=== PATIENT | female | born 1995 | race Caucasian/White ===

== ENCOUNTER → 2018-07-06 | Day surgery (SDC) | payer OTHER ==
[2018-07-06 16:53] VITALS: BMI 30.4
--- NOTE | 2018-07-06 17:19 | PDOC.LDHP ---
Labor and Delivery H&P Chief complaint: decreased movement HPI: Patient of Dr Haines (not available) CC: Here for decreased FM at 29 weeks Patient being followed by MFM uterine septum, then noted on sono to have unilateral kidney. grouth has been at 8% or so (IUGR). Here for eval of NST. No ctx, no LOF, no VB Review of systems: complete ROS completed and as per HPI Current gestational age (weeks): 29 (5 days) Dating criteria: last menstrual period Grav: 2 Para: 1 OB History Details: Current complications: IUGR (foloowed by MFM), other (unilateral kidney) Abnormal US findings: Yes (as discussed) Current medications: pre- vitamins Previous surgical history: none Allergies/Adverse Reactions: Allergies Allergy/AdvReac Type Severity Reaction Status Date / Time Latex, Natural Rubber Allergy Verified 07/06/18 16:51 Social history: none - Physical Exam Vital signs reviewed and normal: yes (122/77 afebrile 80 18) General: NAD Heart: RRR Lungs: CTAB Abdomen: gravid FHT: category 1 (although EGA 29 weeks, FHTs are "reactive" for age) [place] contractions every: none - Assessment Reactive NST even at 29 week EGA; anomaly; IUGR - Plan Plan: observation in L&D (NST reactive. Follow up with MFM as scheduled. No evidence PTL clinically. ok for outpatient care)
== END | disposition home or self-care (01) ==
LOC: L&D/OP 16:24
PROVIDERS: ATTEND Obstetrics & Gynecology
DX: O36.8130 Decreased fetal movements, third trimester, not applicable or unspecified (principal); O36.5930 Maternal care for other known or suspected poor fetal growth, third trimester, not applicable or unspecified; Z3A.29 29 weeks gestation of pregnancy; Z91.040 Latex allergy status
CPT/HCPCS: 99282

== ENCOUNTER 2018-07-16 17:36 | Observation (INO) | payer OTHER ==
[2018-07-16] MEDS ORDERED: Ondansetron PF 4 MG/2 ML Vial IVP PRN (18:19)
[2018-07-16 18:29] VITALS: BMI 30.8
[2018-07-16 19:28] LABS: Hemoglobin 9.8 g/dL (12.0-16.0); Mean Corpuscular HGB CONC 34.2 g/dL (32.0-36.0); Mean Corpuscular Hemoglobin 29.8 pg (27.0-31.0); Mean Platelet Volume 7.4 fL (7.4-10.4); Platelet Count 235 thou/uL (130-400); RBC Distribution Width 11.8 % (11.5-14.5); Red Blood Cell (RBC) Count 3.28 mill/uL (4.20-5.40); White Blood Cell (WBC) Count 10.6 thou/uL (4.8-10.8)
[2018-07-16 20:01] LABS: ALT (SGPT) 9 U/L (8-55); AST (SGOT) 15 U/L (5-34); Albumin 3.2 g/dL (3.5-5.0); Alkaline Phosphatase 132 U/L (40-150); Anion Gap 10 mmol/L (10-20); BUN (Urea Nitrogen) Less than 4 mg/dL (7.0-18.7); Bilirubin, Total 0.2 mg/dL (0.2-1.2); Calc. Creatinine Clearance 192 mL/min (70-130); Calcium 8.6 mg/dL (7.8-10.44); Carbon Dioxide 26 mmol/L (22-29); Chloride 105 mmol/L (98-107); Estimated GFR-MDRD Greater than 90; Globulin 3.1 g/dL (2.4-3.5); Glucose 99 mg/dL (70-105); Protein, Total 6.3 g/dL (6.0-8.3); Sodium 138 mmol/L (136-145)
[2018-07-16 20:06] LABS: Potassium 2.6 mmol/L (3.5-5.1)
[2018-07-16] MEDS: Potassium Chloride 40 MEQ in Sodium Chloride 0.9% 250 ML 250 ML IVPB SCH (20:59)
[2018-07-17] MEDS: Potassium Chloride 40 MEQ in Sodium Chloride 0.9% 250 ML 250 ML IVPB SCH ×3 (01:10→16:17)
--- NOTE | 2018-07-17 02:10 | PDOC.EVN ---
Event Note - Event Note Event Note: lab results potasium of 2.6 will repleat with 160meq iv kcl, mag 1.6 will replace with 3mg mag sulfate.
[2018-07-17] MEDS ORDERED: Magnesium Sulfate 3 GM in Sodium Chloride 0.9% 100 ML IVPB SCH (02:15)
[2018-07-17] MEDS ORDERED: Acetaminophen 500 MG TAB PO SCH (07:00)
--- NOTE | 2018-07-17 07:47 | HP ---
PRIMARY OB: Zeferino Haines DO, MS CHIEF COMPLAINT: Elevated blood pressures. HISTORY OF PRESENT ILLNESS: The patient is a 23-year-old, G2, P1, female with an intrauterine at 31 weeks' gestation, who then presented to Labor and Delivery ER for blood pressure evaluation. The patient has a past medical history of this of gestational hypertension since 28 weeks' gestation. She has been seen weekly by her OB provider, Dr. Haines. The patient reports that at home she has been having some severe range blood pressures of 162 to 167 with diastolic in the 90s to 100. The patient also reports that she has been having headaches for the last few days. She denies vision changes. Denies abdominal pain. Reports swelling in her lower extremities and her upper extremities and face. Denies shortness of breath. Denies fever, recent illness, cough, chest pain, shortness of breath, nausea, vomiting, diarrhea, or constipation. She denies any new rashes, hip problems, knee problems, or muscle weakness. Denies vaginal bleeding or leakage of fluid. Denies urinary urgency or frequency. PAST MEDICAL HISTORY: PCOS. PAST SURGICAL HISTORY: Negative. SOCIAL HISTORY: Denies drug, alcohol, or tobacco use. ALLERGIES: LATEX. MEDICATIONS: 1. vitamins. 2. Zofran p.r.n. 3. Aspirin 81 mg daily. OBSTETRIC HISTORY: In this current , fetus is thought to have only one kidney. OBSTETRIC LABS: Blood type is A positive. Antibody screen is negative. VDRL is nonreactive in the first trimester. Hepatitis B surface antigen nonreactive in the first trimester. HIV nonreactive in the first trimester. and Chlamydia are negative. She is rubella immune. Diabetes screen was 132. OB labs per HPI. PHYSICAL EXAMINATION: VITAL SIGNS: Blood pressure since arrival have ranged from one teens to 130s over 60s to 80s, heart rate in the 90s to 100, respiratory rate 18, saturating 98% on room air, and temperature 98.4. GENERAL: She appears to be in no acute distress. She is alert and oriented, cooperative and pleasant to interact with. HEENT: Head is normocephalic, atraumatic. LUNGS: Clear to auscultation bilaterally. HEART: Has a regular rate and rhythm. ABDOMEN: Gravid and nontender. EXTREMITIES: Nontender. Her DTRs are 2+ with clonus present. LABORATORY DATA: A 24-hour urine protein collection is pending. CBC; white count is 8.6, hemoglobin is 9.8, hematocrit 28.6, MCV 87, and platelets 235,000. Sodium is 138, potassium is 2.6, BUN is less than 4, creatinine is 0.52, calcium is 8.6, and magnesium is 1.4. AST is 15, ALT is 9. A 24-hour urine collection is pending. Fetus shows baseline in the 130s with moderate long-term variability, positive 15 x 15 accelerations, no decelerations. Tocometer showing irritability. ASSESSMENT AND PLAN: The patient is a 23-year-old, G2, P1, female with an intrauterine at 31 weeks and a diagnosis of gestational hypertension in this since 28 weeks' gestation. The patient has been seen weekly, has been reporting blood pressures in the mild range at home until today and last night, where she has had a couple of pressures in the severe range in the 160s systolic. The patient reports blood pressure in the office in the 140s prior to being sent here for evaluation. Blood pressure so far have all been within the normal range. Given her diagnosis, we have admitted the patient for observation and blood pressure monitoring and a 24-hour urine collection. Fetus has category I tracing and reactive NST. Fetus does have a known suspected anomaly of only one kidney and is being followed by Maternal Medicine. There is documentation with the fetus having a growth percentile of 9% on June 20. I do not have evidence of a growth ultrasound since that time. I will order one here. Dr. Haines is aware of the patient's evaluation. We will update her in the morning. Job ID: [id number]
--- NOTE | 2018-07-17 08:13 | PRG ---
DATE OF SERVICE: 07/17/2018 SUBJECTIVE: The patient was admitted to observation yesterday for concerns of worsening PIH as the patient has a diagnosis of gestational hypertension and reported with elevated pressures in the severe range at home and mild ranged pressure in the clinic. The patient has been here now for approximately 12 hours. Blood pressures have all been within normal limits. Her labs have been all within normal limits. A 24-hour urine protein collection is pending. The patient this morning reports that she has been having a headache that at home resolved with Tylenol, but this headache has been off and on for 3 weeks now. She was noted to have hypokalemia and hypomagnesemia as the initial evaluation, which is being replaced currently. This replacement should be completed by about 3:00 this afternoon. OBJECTIVE: VITAL SIGNS: Blood pressure at this time 93/50, heart rate of 94, respiratory rate of 16, and temperature 97.9. GENERAL: She appears to be in no acute distress. She is alert and oriented, cooperative and pleasant to interact with. HEENT: Head is normocephalic, atraumatic. ABDOMEN: Soft. Of note, her blood pressure max since admission has been 133 to 134 systolic and 87 diastolic. ASSESSMENT AND PLAN: The patient is a 23-year-old female with an intrauterine at 31 weeks with the diagnosis of gestational hypertension, who was admitted for observation and 24-hour protein urine collection given reports of severe range pressures at home and a mild ranged pressure in the clinic. We have asked the patient to bring her blood pressure cuff to the hospital so that we can compare to findings that we were getting here. Dr. Onofre will continue her assessment as I will be coming off duty here in the next 30 minutes. The patient will likely be going home this afternoon after her electrolyte replacement is completed. Job ID: [id number]
--- NOTE | 2018-07-17 10:04 | PDOC.EVN ---
Event Note - Event Note Event Note: HD2 S: no NORWOOD, good FM, no concerns, is having BP cuff from home brought up to compare O: VS BP mostly 110-120s over night, occ 130s/70-80s as highest GEN: NAD A and O Lungs: nonlabored breathing Abd: gravid FHT: reactive tracing prior shift Ext: trace edema A/P: Pt @ 31+ weeks with known mild range BP in office and reported severe range BP at home, sent to L and D for evaluation. 24hr urine protein started on admit by OBH service, K+ and Mag ordered to replace electrolytes during BP obs. Discussed likely DC home this afternoon after labs rechecked w normal BP noted.
[2018-07-17 16:43] VITALS: TEMP 98
[2018-07-17 16:50] VITALS: BP 130/67
[2018-07-17 16:50] LABS: Anion Gap 12 mmol/L (10-20); BUN (Urea Nitrogen) Less than 4 mg/dL (7.0-18.7); Calc. Creatinine Clearance 164 mL/min (70-130); Carbon Dioxide 21 mmol/L (22-29); Chloride 106 mmol/L (98-107); Estimated GFR-MDRD Greater than 90; Glucose 156 mg/dL (70-105); Magnesium 1.7 mg/dL (1.6-2.6); Potassium 3.4 mmol/L (3.5-5.1); Sodium 136 mmol/L (136-145); Uric Acid 3.6 mg/dL (2.6-6.0)
[2018-07-17 18:45] LABS: Urine Total Volume 2950 mL (600-1600)
[2018-07-17 19:03] LABS: Protein, Urine Less than 10 mg/dL (1-14)
--- NOTE | 2018-07-17 20:50 | PDOC.EVN ---
Event Note - Event Note Event Note: BPs reassuring. Pt. denies NORWOOD or visual changes. Fhts stable. No significant UCs seen. Last run of K given, lab earlier was 3.4. 24 hr urine returns with less than 300 mg/24 hours. Plan: Dc home with precautions. Has weekly f/u with Dr. Haines scheduled.
== END 2018-07-17 21:02 | disposition home health service (06) ==
LOC: L&D/OP 17:36 → L&D 20:11
PROVIDERS: ADMIT Obstetrics & Gynecology; ATTEND Obstetrics & Gynecology
DX: O13.3 Gestational [pregnancy-induced] hypertension without significant proteinuria, third trimester (principal); Z3A.31 31 weeks gestation of pregnancy; Z79.82 Long term (current) use of aspirin; Z79.899 Other long term (current) drug therapy
CPT/HCPCS: 36415; 80048; 80053; 83735; 84156; 84550; 85027; 96365; 96366; 99285; G0378; J3475; J3480; J7050

== ENCOUNTER 2018-07-31 10:53 | Day surgery (SDC) | payer OTHER ==
[2018-07-31 11:41] VITALS: BMI 31.2
[2018-07-31 12:14] LABS: #Eosinphils 0.4 thou/uL (0.0-0.7); #Lymphocytes 1.9 thou/uL (1.20-3.40); #Monocytes 0.6 thou/uL (0.11-0.59); #Neutrophils 7.8 thou/uL (1.40-6.50); %Basophils 0.3 % (0.0-1.0); %Eosinophils 3.8 % (0.0-10.0); %Lymphocytes 17.5 % (21.0-51.0); %Monocytes 5.3 % (0.0-10.0); %Neutrophils 73.2 % (42.0-75.0); Hemoglobin 9.9 g/dL (12.0-16.0); Mean Corpuscular HGB CONC 34.5 g/dL (32.0-36.0); Mean Corpuscular Hemoglobin 29.5 pg (27.0-31.0); Mean Corpuscular Volume 85.3 fL (78.0-98.0); Mean Platelet Volume 7.6 fL (7.4-10.4); Platelet Count 246 thou/uL (130-400); RBC Distribution Width 11.9 % (11.5-14.5); Red Blood Cell (RBC) Count 3.36 mill/uL (4.20-5.40); White Blood Cell (WBC) Count 10.6 thou/uL (4.8-10.8)
--- NOTE | 2018-07-31 12:25 | PDOC.LDHP ---
Labor and Delivery H&P Chief complaint: other (Elevated BP) HPI: 23 y/o at 33w2d, patient of Dr. Haines, sent from clinic for elevated BPs , headache, spots in vision, and RUQ pain. Denies VB, LOF, ctx, or decreased FM. ROS neg for HEENT, cv, pulm, gi, gu, neuro, psych, skin, musculoskeletal or constitutional symptoms other than mentioned above. OB History Details: 1 prior LTCS at term, preeclampsia with that . Current complications: gestational hypertension, other (hypokalemia, anemia) Past Medical History: Neg Current medications: pre-zachary vitamins, iron, other (aspirin, K-dur 40 meq daily) Previous surgical history: low tranverse CS (x1) Allergies/Adverse Reactions: Allergies Allergy/AdvReac Type Severity Reaction Status Date / Time Latex, Natural Rubber Allergy Hives Verified 07/31/18 11:31 Social history: none - Physical Exam Abnormal vital signs: Mild range BPs General: NAD, resting Lungs: nonlabored breathing Abdomen: gravid Extremeties: no edema FHT: category 1 (135, mod variability, + accels, no decels) Graf contractions every: None - Assessment 23 y/o at 33w2d with gestational hypertension. Labs wnl except for anemia, hypokalemia, and mild hypomagnesemia. status reassuring with reactive NST. - Plan -: Given dose of K-dur 40meq, will repeat q4 hours for 2 more doses. Also given Rx for Slow Mag, 2 tabls to be taken daily starting today. Will recheck in clinic tomorrow. To continue iron for anemia. D/c home with precautions.
[2018-07-31 12:35] LABS: ALT (SGPT) 9 U/L (8-55); AST (SGOT) 12 U/L (5-34); Albumin 3.4 g/dL (3.5-5.0); Alkaline Phosphatase 168 U/L (40-150); Anion Gap 11 mmol/L (10-20); BUN (Urea Nitrogen) Less than 4 mg/dL (7.0-18.7); Bilirubin, Total 0.4 mg/dL (0.2-1.2); Calc. Creatinine Clearance 181 mL/min (70-130); Calcium 9.2 mg/dL (7.8-10.44); Carbon Dioxide 25 mmol/L (22-29); Chloride 104 mmol/L (98-107); Estimated GFR-MDRD Greater than 90; Globulin 3.2 g/dL (2.4-3.5); Glucose 90 mg/dL (70-105); Protein, Total 6.6 g/dL (6.0-8.3); Sodium 137 mmol/L (136-145)
[2018-07-31 12:37] LABS: Creatinine, Urine 54.33 mg/dL (47-110)
[2018-07-31 12:38] LABS: Potassium 2.7 mmol/L (3.5-5.1)
[2018-07-31] MEDS ORDERED: Acetaminophen 500 MG TAB PO SCH (12:45)
[2018-07-31] MEDS ORDERED: Potassium Chloride 20 MEQ TAB PO SCH (13:00)
== END 2018-07-31 14:42 | disposition home health service (06) ==
LOC: L&D/OP 10:53
PROVIDERS: ATTEND Obstetrics & Gynecology
DX: O13.3 Gestational [pregnancy-induced] hypertension without significant proteinuria, third trimester (principal); O99.283 Endocrine, nutritional and metabolic diseases complicating pregnancy, third trimester; O99.013 Anemia complicating pregnancy, third trimester; E83.42 Hypomagnesemia; E87.6 Hypokalemia; Z3A.33 33 weeks gestation of pregnancy; O34.211 Maternal care for low transverse scar from previous cesarean delivery; Z79.82 Long term (current) use of aspirin; Z91.040 Latex allergy status
CPT/HCPCS: 36415; 80053; 82570; 83735; 84156; 85025; 99283

== ENCOUNTER 2018-08-07 14:30 | Outpatient (CLI) | payer OTHER | END 2018-08-07 14:31 | disposition home or self-care (01) | LOC: ULT 14:30 | PROVIDERS: ATTEND Obstetrics & Gynecology | DX: R06.00 Dyspnea, unspecified (principal); I08.1 Rheumatic disorders of both mitral and tricuspid valves | CPT/HCPCS: 93306 ==

== ENCOUNTER 2018-08-14 15:19 | Day surgery (SDC) | payer OTHER ==
[2018-08-14 15:52] VITALS: BMI 32.2
[2018-08-14 17:05] LABS: Mean Corpuscular HGB CONC 33.9 g/dL (32.0-36.0); Mean Corpuscular Hemoglobin 29.1 pg (27.0-31.0); Mean Platelet Volume 7.9 fL (7.4-10.4); Platelet Count 245 thou/uL (130-400); RBC Distribution Width 12.7 % (11.5-14.5); Red Blood Cell (RBC) Count 3.44 mill/uL (4.20-5.40); White Blood Cell (WBC) Count 10.3 thou/uL (4.8-10.8)
[2018-08-14 17:28] LABS: ALT (SGPT) 10 U/L (8-55); AST (SGOT) 13 U/L (5-34); Albumin 3.4 g/dL (3.5-5.0); Alkaline Phosphatase 198 U/L (40-150); Anion Gap 12 mmol/L (10-20); BUN (Urea Nitrogen) Less than 4 mg/dL (7.0-18.7); Bilirubin, Total 0.3 mg/dL (0.2-1.2); Calc. Creatinine Clearance 177 mL/min (70-130); Carbon Dioxide 21 mmol/L (22-29); Chloride 108 mmol/L (98-107); Estimated GFR-MDRD Greater than 90; Globulin 3.5 g/dL (2.4-3.5); Glucose 130 mg/dL (70-105); Protein, Total 6.9 g/dL (6.0-8.3); Sodium 138 mmol/L (136-145)
--- NOTE | 2018-08-15 07:46 | SS ---
DATE OF ADMISSION: 08/14/2018 DATE OF DISCHARGE: 08/14/2018 REGULAR PHYSICIAN: Zeferino Haines DO EVALUATING PHYSICIAN: Bernardo Onofre MD CHIEF COMPLAINT: Sent from office for preeclampsia workup. HISTORY OF PRESENT ILLNESS: Ms. Mcarthur is a 23-year-old white G2, P1-0-0-1 with an estimated date of confinement of 09/16/2018, who presents from Dr. Haines's office for evaluation. She was seen in Dr. Haines's office early this afternoon with systolic blood pressure of 170, but has no symptoms of headache, blurry vision, or right upper quadrant pain. This patient has been seen several times for a preeclampsia workup. She was given a dose of Celestone in Dr. Haines's office. PAST OBSTETRICAL HISTORY: Includes one vaginal delivery at 39 weeks, also complicated by preeclampsia. PAST MEDICAL HISTORY: None. PAST SURGICAL HISTORY: None. CURRENT MEDICATIONS: 1. vitamins. 2. Baby aspirin once a day as well as supplemental potassium, iron, and magnesium. ALLERGIES: LATEX. SOCIAL HISTORY: Denies tobacco, alcohol, or drug use. FAMILY HISTORY: Unremarkable. PHYSICAL EXAMINATION: VITAL SIGNS: Initial blood pressures in labor and delivery are 138/84 and 134/80. GENERAL: She is in no acute distress. heart tones are stable and there is no significant contraction pattern seen. During her stay here, a CBC, Chem 20, and a urinalysis for urine protein and creatinine were drawn. The patient then stated that she was leaving the hospital to get her children at school. Dr. Haines was notified. ASSESSMENT: 1. A 35-week intrauterine , rule out preeclampsia. 2. Incomplete evaluation. Dr. Haines has been notified and her laboratories are pending. Job ID: [id number]
== END 2018-08-14 16:43 | disposition left against medical advice (07) ==
LOC: L&D/OP 15:19
PROVIDERS: ATTEND Obstetrics & Gynecology
DX: O16.3 Unspecified maternal hypertension, third trimester (principal); Z3A.35 35 weeks gestation of pregnancy; Z91.040 Latex allergy status; Z79.82 Long term (current) use of aspirin; Z79.899 Other long term (current) drug therapy
CPT/HCPCS: 36415; 80053; 85027; 87081; 99282

== ENCOUNTER 2018-08-28 00:02 | Inpatient (IN) | payer OTHER ==
[2018-08-28] MEDS ORDERED: NS w/ Oxytocin 10 units 500 ML IV SCH ×2 (00:17)
[2018-08-28] MEDS ORDERED: Ondansetron PF 4 MG/2 ML Vial IVP PRN ×3 (00:17→17:05)
[2018-08-28] MEDS ORDERED: Ibuprofen 800 MG TAB PO PRN (00:17)
[2018-08-28] MEDS ORDERED: NS / Oxytocin 40 units/1000ml 1,000 ML IV PRN (00:17)
[2018-08-28] MEDS ORDERED: Butorphanol Tartrate 1 MG/ML VIAL SLOW IVP PRN (00:17)
[2018-08-28] MEDS ORDERED: HYDROcodone/Acetaminophen 5/325 mg Tablet PO PRN ×3 (00:17→17:05)
[2018-08-28] MEDS ORDERED: Lidocaine 1% (PF) 30 ML VIAL SC PRN (00:17)
[2018-08-28] MEDS ORDERED: Promethazine HCl 25 MG/ML VIAL IM PRN ×2 (00:17→09:24)
[2018-08-28] MEDS: Lactated Ringer's 1,000 ML IV SCH ×3 (00:35→12:39)
[2018-08-28 00:51] VITALS: BMI 31.2
[2018-08-28 01:08] LABS: Hemoglobin 9.3 g/dL (12.0-16.0); Mean Corpuscular HGB CONC 33.8 g/dL (32.0-36.0); Mean Corpuscular Hemoglobin 28.3 pg (27.0-31.0); Mean Corpuscular Volume 83.5 fL (78.0-98.0); Mean Platelet Volume 7.9 fL (7.4-10.4); Platelet Count 228 thou/uL (130-400); RBC Distribution Width 13.7 % (11.5-14.5); Red Blood Cell (RBC) Count 3.29 mill/uL (4.20-5.40); White Blood Cell (WBC) Count 10.5 thou/uL (4.8-10.8)
[2018-08-28] MEDS: Misoprostol 100 MCG TAB VAG SCH ×3 (01:16→18:10)
[2018-08-28 01:31] LABS: ALT (SGPT) 10 U/L (8-55); AST (SGOT) 13 U/L (5-34); Albumin 3.4 g/dL (3.5-5.0); Alkaline Phosphatase 211 U/L (40-150); Anion Gap 17 mmol/L (10-20); BUN (Urea Nitrogen) 5 mg/dL (7.0-18.7); Bilirubin, Total 0.4 mg/dL (0.2-1.2); Calc. Creatinine Clearance 160 mL/min (70-130); Calcium 9.3 mg/dL (7.8-10.44); Carbon Dioxide 21 mmol/L (22-29); Chloride 104 mmol/L (98-107); Estimated GFR-MDRD Greater than 90; Globulin 2.9 g/dL (2.4-3.5); Glucose 85 mg/dL (70-105); Potassium 3.1 mmol/L (3.5-5.1); Protein, Total 6.3 g/dL (6.0-8.3); Sodium 139 mmol/L (136-145)
[2018-08-28 01:47] LABS: HBSAg Index 0.29 S/CO (0-0.99); Hep B Surf Ag Non-Reactive S/CO (NonReactive)
[2018-08-28 04:12] LABS: Syphilis Antibody Nonreactive (Nonreactive); Syphilis Antibody Index 0.03 S/CO (<1.00 Non-Reactive)
[2018-08-28] MEDS ORDERED: Fentanyl 4 mcg/Bup 0.1% Cadd 100 ML ONE (08:43)
[2018-08-28] MEDS ORDERED: diphenhydrAMINE 50 MG/ML VIAL IVP PRN (09:24)
[2018-08-28] MEDS ORDERED: Naloxone HCl 0.4 mg/ml Vial IVP PRN ×2 (09:24)
[2018-08-28] MEDS ORDERED: Acetaminophen 325 MG TAB PO PRN (09:24)
[2018-08-28] MEDS ORDERED: Eucerin (Mineral Oil/Petrolatum,White) 30 gm Jar TOP PRN (09:24)
[2018-08-28] MEDS ORDERED: ePHEDrine/0.9% NaCl/PF SYRINGE 50 mg/10 ml SLOW IVP PRN (09:24)
[2018-08-28] MEDS ORDERED: Lactated Ringer's 500 ML IV PRN (09:24)
[2018-08-28] MEDS ORDERED: Communication Order-Pharmacy FS SCH (09:30)
[2018-08-28] MEDS ORDERED: Fentanyl 4 mcg/Bupivacaine 0.1% Cassette 100 ML EPIDURAL SCH (09:30)
--- NOTE | 2018-08-28 10:55 | PDOC.LDHP ---
Labor and Delivery H&P Chief complaint: scheduled induction HPI: Pt is a 23yo @ 37.2 weeks here for scheduled IOL for mild preeclampsia managed outpatient until today. Pt PNC noteworthy for asymmetric IUGR in the early third trimester that has seemed to resolve clinically on US, she is also suspected to have a baby with unilateral renal agenesis. Current gestational age (weeks): 37 Dating criteria: last menstrual period, first trimester ultrasound Grav: 2 Para: 1 Current complications: preeclampsia without severe features, other ( unilateral renal agenesis, pt w uterine septum) Abnormal US findings: Yes (unilateral renal agenesis, asymm growth) Past Medical History: hypokalemia during Current medications: pre- vitamins, iron, other (potassium) Previous surgical history: none Allergies/Adverse Reactions: Allergies Allergy/AdvReac Type Severity Reaction Status Date / Time Latex, Natural Rubber Allergy Hives Verified 07/31/18 11:31 Social history: none - Physical Exam Vital signs reviewed and normal: yes General: NAD Heart: RRR Lungs: CTAB Abdomen: gravid Extremeties: no edema FHT: category 1 - Vaginal Exam cm dilated: 2 (arom w clear fluid) Effacement: 50% Station: -2 - OB Labs Blood type: A RH: positive Antibody Screen: negative HIV: negative RPR: negative HEPSAg: negative 1 hour GCT: positive 3 hour GTT: WNL GBS: negative Rubella: immune - Assessment L&D Assessment: medically indicated induction - Plan Plan: admit to L&D, labor augmentation if indicated, informed consent obtained, anesthesia consult for pain management -: A/P: 23yo @ 37.2 weeks with preeclampsia without severe features here for scheduled IOL. Suspected unilateral renal agenesis, mukesh team aware. AROM on admit exam and pitocin ordered. FHT reassuring.
--- NOTE | 2018-08-28 12:18 | PDOC.LDPN ---
Labor & Delivery Progress Note - Subjective Subjective: comfortable - Objective Vital signs reviewed and normal: yes Dilation: 7 Effacement: 90% Station: 0 FHT: early decelerations, variability present AROM: clear fluid (on admit exam) Resuscitative measures: maternal position change - Assessment (1) Pre-eclampsia Code(s): O14.90 - UNSPECIFIED PRE-ECLAMPSIA, UNSPECIFIED TRIMESTER Current Visit: Yes Status: Acute Plan: continue plan of care
--- NOTE | 2018-08-28 14:22 | PDOC.OPDEL ---
OB Operative/Delivery Note Delivery Dr/Surgeon: Zaki Pre-Delivery Diagnosis: medically indicated induction (preeclampsia without severe features) Procedure/Post Delivery Dx: spontaneous vaginal delivery Weeks gestation: 37 Anesthesia: epidural - Findings A Sex: female - 1 min: 3 - 5 min: 7 - Additional Findings/Plan Placenta delivered: spontaneous Repaired Obstetrical Laceration: none Estimated blood loss: 70ml Post delivery plan: routine recovery
[2018-08-28] MEDS ORDERED: Bupivacaine PF 0.5% 30 ML VIAL ONE (15:00)
[2018-08-28] MEDS ORDERED: Bupivacaine/Epinephrine 0.25% 30 ML VIAL ONE (15:00)
[2018-08-28] MEDS ORDERED: Bisacodyl 10 MG SUPP PR PRN (17:05)
[2018-08-28] MEDS ORDERED: Benzocaine-Menthol 82.5 ML CAN TOP PRN (17:05)
[2018-08-28] MEDS ORDERED: Adacel (T-DAP) 0.5 ML SYRINGE IM ONE (17:05)
[2018-08-28] MEDS ORDERED: NS / Oxytocin 40 units/1000ml 1,000 ML IV SCH (17:05)
[2018-08-28] MEDS ORDERED: Milk Of Magnesia 30 ML UDCUP PO PRN (17:05)
[2018-08-28] MEDS ORDERED: Lanolin Ointment 7 GM TUBE TOP PRN (17:05)
[2018-08-28] MEDS ORDERED: diphenhydrAMINE 25 MG CAP PO PRN (17:05)
[2018-08-28] MEDS ORDERED: Preparation H Ointment 28 GM TUBE PR PRN (17:05)
[2018-08-28] MEDS ORDERED: Potassium Chloride 10 MEQ/100 ML PREMIX BAG IVPB SCH (17:15)
[2018-08-28] MEDS: Ferrous Sulfate 325 MG TAB PO SCH (18:25)
[2018-08-28] MEDS: HYDROcodone/Acetaminophen 5/325 mg Tablet PO PRN (20:10)
[2018-08-28] MEDS: Ibuprofen 800 MG TAB PO SCH (21:28)
[2018-08-28] MEDS: Docusate Calcium (SURFAK) 240 MG CAP PO SCH (21:28)
[2018-08-28] MEDS ORDERED: Sodium Chloride 0.9% 10 ML ONE (22:59)
[2018-08-29] MEDS: HYDROcodone/Acetaminophen 5/325 mg Tablet PO PRN ×2 (04:21→14:02)
[2018-08-29 05:27] LABS: Hemoglobin 8.9 g/dL (12.0-16.0); Mean Corpuscular HGB CONC 33.8 g/dL (32.0-36.0); Mean Corpuscular Hemoglobin 28.8 pg (27.0-31.0); Mean Corpuscular Volume 85.1 fL (78.0-98.0); Platelet Count 212 thou/uL (130-400); RBC Distribution Width 13.6 % (11.5-14.5); Red Blood Cell (RBC) Count 3.09 mill/uL (4.20-5.40); White Blood Cell (WBC) Count 12.6 thou/uL (4.8-10.8)
[2018-08-29] MEDS: Ibuprofen 800 MG TAB PO SCH ×3 (05:48→21:54)
[2018-08-29 06:06] LABS: Anion Gap 10 mmol/L (10-20); BUN (Urea Nitrogen) 6 mg/dL (7.0-18.7); Calc. Creatinine Clearance 206 mL/min (70-130); Calcium 7.8 mg/dL (7.8-10.44); Carbon Dioxide 22 mmol/L (22-29); Chloride 103 mmol/L (98-107); Estimated GFR-MDRD Greater than 90; Glucose 74 mg/dL (70-105); Potassium 2.9 mmol/L (3.5-5.1); Sodium 132 mmol/L (136-145)
[2018-08-29] MEDS ORDERED: Potassium Chloride 20 MEQ TAB PO SCH (06:15)
[2018-08-29] MEDS: NS 0.9% w/ 40 MEQ KCL 1,000 ML IV SCH ×2 (06:45→18:08)
--- NOTE | 2018-08-29 08:10 | PDOC.PP ---
Post Progress Note Post Day #: 1 Subjective: no NORWOOD, no pain, min lochia, baby feeding well PO intake tolerated: yes Flatus: yes Ambulation: yes Vital Signs (12 hours) Temp Pulse Resp BP Pulse Ox 08/29/18 08:07 97.8 F 76 20 112/65 98 08/29/18 04:50 98.1 F 82 18 112/66 08/29/18 00:21 97.8 F 77 18 110/61 Weight Weight 160 lb - Physical Examination General: NAD Respiratory: non-labored breathing Abdominal: no distention Fundus firm & at: below umb Skin: no rash Psychiatric: A&Ox3, normal affect Result Diagrams: 08/29/18 04:56 08/29/18 04:56 Additional Labs: Post Labs Blood Type A POSITIVE 08/28/18 00:56 Hep Bs Antigen Non-Reactive S/CO (NonReactive) 08/28/18 00:56 (1) Pre-eclampsia Code(s): O14.90 - UNSPECIFIED PRE-ECLAMPSIA, UNSPECIFIED TRIMESTER Status: Acute (2) Hypokalemia Code(s): E87.6 - HYPOKALEMIA Status: Acute - Assessment/Plan PPD1, doing well sp IOL for preeclampsia without severe features, BP WNL PP. Replacing K, will check Mag and TSH w next lab draw, anticipate DC tomorrow.
[2018-08-29] MEDS: Ferrous Sulfate 325 MG TAB PO SCH ×2 (09:34→18:42)
[2018-08-29] MEDS: Prenatal Vitamin 1 TAB PO SCH (09:34)
[2018-08-29] MEDS: Docusate Calcium (SURFAK) 240 MG CAP PO SCH ×2 (09:35→21:54)
[2018-08-29 18:58] LABS: ALT (SGPT) 9 U/L (8-55); AST (SGOT) 20 U/L (5-34); Albumin 2.8 g/dL (3.5-5.0); Alkaline Phosphatase 178 U/L (40-150); Anion Gap 8 mmol/L (10-20); BUN (Urea Nitrogen) 5 mg/dL (7.0-18.7); Bilirubin, Total 0.2 mg/dL (0.2-1.2); Calc. Creatinine Clearance 166 mL/min (70-130); Calcium 8.5 mg/dL (7.8-10.44); Carbon Dioxide 24 mmol/L (22-29); Chloride 109 mmol/L (98-107); Estimated GFR-MDRD Greater than 90; Globulin 2.7 g/dL (2.4-3.5); Glucose 82 mg/dL (70-105); Potassium 3.8 mmol/L (3.5-5.1); Protein, Total 5.5 g/dL (6.0-8.3); Sodium 137 mmol/L (136-145)
[2018-08-30] MEDS: NS 0.9% w/ 40 MEQ KCL 1,000 ML IV SCH (03:35)
[2018-08-30] MEDS: Ibuprofen 800 MG TAB PO SCH (04:54)
--- NOTE | 2018-08-30 06:24 | PDOC.PP ---
Post Progress Note Post Day #: 2 Subjective: No concerns. Breast feeding. Minimal pain and lochia. Denies preE sx. PO intake tolerated: yes Flatus: yes Ambulation: yes Vital Signs (12 hours) Temp Pulse Resp BP Pulse Ox 08/30/18 03:45 98.6 F 80 18 108/62 96 08/29/18 23:45 98.2 F 97 18 117/58 L 97 08/29/18 20:07 98.0 F 94 18 125/71 98 Weight Weight 160 lb - Physical Examination General: NAD Cardiovascular: RRR Respiratory: non-labored breathing Abdominal: no distention, appropriately TTP Fundus firm & at: below umbilicus Extremities: negative homans (B) Neurological: no gross focal deficits Psychiatric: A&Ox3, normal affect Result Diagrams: 08/29/18 04:56 08/29/18 18:29 Additional Labs: Post Labs Blood Type A POSITIVE 08/28/18 00:56 Hep Bs Antigen Non-Reactive S/CO (NonReactive) 08/28/18 00:56 (1) Vaginal delivery Code(s): O80 - ENCOUNTER FOR FULL-TERM UNCOMPLICATED DELIVERY Status: Acute - Assessment/Plan PPD2 VSSAF; BPP wnl K now wnl after replacement. Meeting requirements for d/c. D/C home with .
[2018-08-30 08:05] VITALS: BP 116/70; TEMP 98.2
[2018-08-30] MEDS: Prenatal Vitamin 1 TAB PO SCH (09:29)
[2018-08-30] MEDS: Ferrous Sulfate 325 MG TAB PO SCH (09:29)
[2018-08-30] MEDS: Docusate Calcium (SURFAK) 240 MG CAP PO SCH (09:30)
== END 2018-08-30 10:40 | disposition home or self-care (01) | DRG 807 ==
LOC: L&D 00:02 → 3SW 17:34
PROVIDERS: ADMIT Obstetrics & Gynecology; ATTEND Obstetrics & Gynecology
PROC: 10E0XZZ Delivery of Products of Conception, External Approach (ICD-10-PCS; principal; 2018-08-28)
DX: O14.94 Unspecified pre-eclampsia, complicating childbirth (principal); Z37.0 Single live birth; O99.284 Endocrine, nutritional and metabolic diseases complicating childbirth; Z3A.37 37 weeks gestation of pregnancy; Z91.040 Latex allergy status; E87.6 Hypokalemia; Z79.82 Long term (current) use of aspirin
CPT/HCPCS: 36415; 51702; 80048; 80053; 83735; 84443; 85027; 86780; 86850; 86900; 86901; 87340; 90715; J2405; J2590; J3480; S0020